=== PATIENT | female | born 1975 | race Caucasian/White ===

== ENCOUNTER 2019-04-23 12:52 | Emergency (ER) | payer OTHER ==
[2019-04-23] MEDS ORDERED: Sodium Chloride 0.9% 10 ML Syringe FLUSH PRN (12:57)
--- NOTE | 2019-04-23 12:58 | EDM.PDOC ---
ED HPI GENERAL MEDICAL PROBLEM - General Chief Complaint: Cardiovascular Problem Stated Complaint: [facility] Time Seen by Provider: 04/23/19 12:57 Source of Information: Reports: Patient, EMS History Limitations: Reports: No Limitations - History of Present Illness INITIAL COMMENTS - FREE TEXT/NARRATIVE: The patient presents by [facility] for tachycardia. She thinks this started about 8:30 this morning. She could feel her heart race. She has a history of anxiety and she felt it was related to that. She did check her pulse and it was high. EMS had her on the monitor and she was in a rapid heart rate at times as high as 220. Vagal maneuvers were attempted and she did slow down some. There was lots of artifact and it was hard to tell if it was A-fib or SVT. The rhythm was irregular at times. Adenisine 6mg IV was given. There was no affect but later when they arrived she converted to a NSR. She had no chest pain or shortness of breath with this. She has no fever, chills, cough, congestion, runny nose, abdominal pain, nausea or vomiting. She has never had any problem like this before. She has no history of heart problems. Onset: Sudden Duration: Hour(s): (8:30 this morning) Severity: Moderate Improves with: Reports: None Worsens with: Reports: None Associated Symptoms: Reports: No Other Symptoms - Related Data Allergies Allergy/AdvReac Type Severity Reaction Status Date / Time No Known Allergies Allergy Verified 04/23/19 13:02 Home Meds: Home Meds . [No Known Home Meds] 04/23/19 [History] ED ROS GENERAL - Review of Systems Review Of Systems: See Below Constitutional: Reports: No Symptoms HEENT: Reports: No Symptoms Respiratory: Reports: No Symptoms Cardiovascular: Reports: Palpitations. Denies: Chest Pain, Edema, Syncope Endocrine: Reports: No Symptoms GI/Abdominal: Reports: No Symptoms : Reports: No Symptoms Musculoskeletal: Reports: No Symptoms ED EXAM, GENERAL - Physical Exam Exam: See Below Exam Limited By: No Limitations General Appearance: Alert, No Apparent Distress Ears: Normal External Exam Nose: Normal Inspection Head: Atraumatic, Normocephalic Neck: Normal Inspection Respiratory/Chest: No Respiratory Distress, Lungs Clear, Normal Breath Sounds Cardiovascular: Regular Rate, Rhythm, No Edema, No Murmur GI/Abdominal: Soft, Non-Tender, No Organomegaly, No Mass Back Exam: Normal Inspection Extremities: Normal Inspection EKG INTERPRETATION EKG Date: 04/23/19 Time: 12:56 Rhythm: NSR Rate (Beats/Min): 82 [place]: RAD-Right [place] Deviation P-Wave: Present QRS: Normal ST-T: Normal QT: Normal Course - Vital Signs Last Recorded V/S: Last Vital Signs Temp 97.7 F 04/23/19 13:00 Pulse 84 04/23/19 13:00 Resp 20 04/23/19 13:00 BP 125/81 04/23/19 13:00 Pulse Ox 99 04/23/19 13:00 - Orders/Labs/Meds Orders: Active Orders 24 hr Category Date Time Status Cardiac Monitoring [RC] . DIRECTED Care 04/23/19 12:57 Active EKG Documentation Completion [RC] STAT Care 04/23/19 12:57 Active Holter Monitor 48 Hours [RC] .PRN Care 04/23/19 14:32 Ordered Peripheral IV Care [RC] . DIRECTED Care 04/23/19 12:57 Active Chest 1V Frontal [CR] Stat Exams 04/23/19 12:57 Taken Sodium Chloride 0.9% [Saline Flush] Med 04/23/19 12:57 Active 10 ml FLUSH ASDIRECTED PRN Peripheral IV Insertion Adult [OM.PC] Stat Oth 04/23/19 12:57 Ordered Medication Orders Sodium Chloride (Saline Flush) 10 ml FLUSH ASDIRECTED PRN PRN Reason: Keep Vein Open Last Admin: 04/23/19 13:50 Dose: 10 ml Labs: Laboratory Tests 04/23/19 04/23/19 Range/Units 13:10 13:10 WBC 4.50 (3.98-10.04) K/mm3 RBC 4.39 (3.98-5.22) M/mm3 Hgb 12.5 (11.2-15.7) gm/L Hct 38.1 (34.1-44.9) % MCV 86.8 (79.4-94.8) fl MCH 28.5 (25.6-32.2) pg MCHC 32.8 (32.2-35.5) g/dl RDW Std Deviation 40.2 (36.4-46.3) fL Plt Count 214 (182-369) K/mm3 MPV 11.2 (9.4-12.3) fl Neut % (Auto) 68.9 (34.0-71.1) % Lymph % (Auto) 21.6 (19.3-51.7) % [place] % (Auto) 8.2 (4.7-12.5) % Eos % (Auto) 0.9 (0.7-5.8) Baso % (Auto) 0.4 (0.1-1.2) % Neut # (Auto) 3.10 (1.56-6.13) K/mm3 Lymph # (Auto) 0.97 L (1.18-3.74) K/mm3 [place] # (Auto) 0.37 H (0.24-0.36) K/mm3 Eos # (Auto) 0.04 (0.04-0.36) K/mm3 Baso # (Auto) 0.02 (0.01-0.08) K/mm3 Sodium 142 (136-145) mEq/L Potassium 3.5 (3.5-5.1) mEq/L Chloride 105 (98-107) mEq/L Carbon Dioxide 25 (21-32) mEq/L Anion Gap 15.5 H (5-15) BUN 12 (7-18) mg/dL Creatinine 0.9 (0.55-1.02) mg/dL Est Cr Clr Drug Dosing 76.76 mL/min Estimated GFR (MDRD) > 60 (>60) mL/min BUN/Creatinine Ratio 13.3 L (14-18) Glucose 140 H (74-106) mg/dL Calcium 8.5 (8.5-10.1) mg/dL Total Bilirubin 0.4 (0.2-1.0) mg/dL AST 19 (15-37) U/L ALT 23 (14-59) U/L Alkaline Phosphatase 56 (46-116) U/L Troponin I < 0.017 (0.00-0.056) ng/mL Total Protein 7.0 (6.4-8.2) g/dl Albumin 3.7 (3.4-5.0) g/dl Globulin 3.3 gm/dL Albumin/Globulin Ratio 1.1 (1-2) TSH 3rd Generation 1.362 (0.358-3.74) uIU/mL Meds: Medications Generic Name Dose Route Start Last Admin Trade Name Carlos PRN Reason Stop Dose Admin Sodium Chloride 10 ml 04/23/19 12:57 04/23/19 13:50 Saline Flush FLUSH 10 ml ASDIRECTED PRN Administration Keep Vein Open - Re-Assessments/Exams Free Text/Narrative Re-Assessment/Exam: 04/23/19 13:42 I ordered an IV saline lock, EKG, CXR and labs. Her EKG shows a NSR. I looked at the heart monitor from EMS and it appeared she may have been in an SVT. 04/23/19 14:33 Her EKS shows a NSR at 82 with no acute changes. Her CBC and CMP look good. Her troponin and TSH are normal. She did have an episode here but her heart rate was only in the 90s. I will get her on a holter monitor for 48 hours and have her follow up with Dr Cameron. Departure - Departure Time of Disposition: 14:35 Disposition: Home, Self-Care 01 Condition: Good Clinical Impression: SVT (supraventricular tachycardia) Referrals: PCP,None [Primary Care Provider] - Bharat Barriga MD [Physician] - 1 Week Forms: ED Department Discharge Additional Instructions: Drink plenty of fluids. Wear the holter monitor for [address] hours[address] Follow up with Dr Cameron within a week. Try to limit or caffeine intake. If you have another episode, try bearing down like you are having a bowel movement. Sometimes that may help. Please return if you are worse. - My Orders Last 24 Hours: My Active Orders 04/23/19 12:57 Cardiac Monitoring [RC] . DIRECTED EKG Documentation Completion [RC] STAT Peripheral IV Care [RC] . DIRECTED Chest 1V Frontal [CR] Stat Sodium Chloride 0.9% [Saline Flush] 10 ml FLUSH ASDIRECTED PRN Peripheral IV Insertion Adult [OM.PC] Stat 04/23/19 14:32 Holter Monitor 48 Hours [RC] .PRN - Assessment/Plan Last 24 Hours: My Active Orders 04/23/19 12:57 Cardiac Monitoring [RC] . DIRECTED EKG Documentation Completion [RC] STAT Peripheral IV Care [RC] . DIRECTED Chest 1V Frontal [CR] Stat Sodium Chloride 0.9% [Saline Flush] 10 ml FLUSH ASDIRECTED PRN Peripheral IV Insertion Adult [OM.PC] Stat 04/23/19 14:32 Holter Monitor 48 Hours [RC] .PRN
--- NOTE | 2019-04-24 10:16 | CR ---
Chest: Portable view of the chest was obtained. Comparison: Previous chest x-ray of 11/14/12. Heart size and mediastinum are normal. Lungs are clear. Minimal scoliosis is seen within the spine. Impression: 1. Nothing acute is appreciated on portable chest x-ray. Diagnostic code #2
== END 2019-04-23 15:22 | disposition home or self-care (01) ==
LOC: JD.ED 12:52
DX: I47.1 Supraventricular tachycardia (principal)
CPT/HCPCS: 36415; 71045; 71045-26; 80053; 84443; 84484; 85025; 93005; 93010; 93225; 93226; 99284; 99285-25